=== PATIENT | male | born 1990 | race Caucasian/White ===

== ENCOUNTER 2016-05-10 17:29 | Emergency (ER) | payer OTHER ==
[~2016-05-10] VITALS: Ht 170.2 cm; Wt 53.2 kg
[2016-05-10] MEDS ORDERED: HYDROGEN PEROXIDE 118 ML SOLUTION TP ONE (20:15)
[2016-05-10 21:48] VITALS: BP 121/78
== END 2016-05-10 21:52 | disposition home or self-care (01) ==
LOC: EMS 17:32
DX: H65.01 Acute serous otitis media, right ear (principal); H61.23 Impacted cerumen, bilateral
CPT/HCPCS: 69209; 69210; 99283

== ENCOUNTER 2016-08-15 21:36 | Emergency (ER) | payer OTHER ==
[~2016-08-15] VITALS: Ht 170.2 cm; Wt 54.5 kg
[2016-08-15] MEDS ORDERED: CARBAMIDE PEROXIDE 6.5% 15 ML OTIC SOLUTION AU ONE (22:30)
[2016-08-15 23:09] VITALS: BP 122/74
== END 2016-08-15 23:16 | disposition home or self-care (01) ==
LOC: EMS 21:40
DX: H61.23 Impacted cerumen, bilateral (principal)
CPT/HCPCS: 99282